=== PATIENT | male | born 1950 | race Asian ===

== ENCOUNTER → 2017-04-25 | Outpatient (CLI) | payer MEDICARE, OTHER ==
[~2017-04-25] VITALS: Ht 165.1 cm; Wt 88.9 kg
[~2017-04-25] MED LIST: ADV250 IH; ALBU8HFA IH; APIX5TAB PO; CETI-260 PO; FLUO15CR2 TP; HYDR25TA PO; LOSA50TA37 PO; METF500T4 PO; TRIAMCINOLONE 0.1% 15 GM OINTMENT TP ONE
[2017-04-25 13:53] VITALS: BP 152/94
[2017-04-25 15:54] LABS: GLUCOSE,POINT OF CARE 99 MG/DL (70-110)
== END | disposition home or self-care (01) ==
LOC: HBOWC 12:24
PROVIDERS: ATTEND Emergency Medicine
DX: E11.622 Type 2 diabetes mellitus with other skin ulcer (principal); L97.811 Non-pressure chronic ulcer of other part of right lower leg limited to breakdown of skin; I87.2 Venous insufficiency (chronic) (peripheral); I48.91 Unspecified atrial fibrillation; E78.5 Hyperlipidemia, unspecified; I10 Essential (primary) hypertension; J44.9 Chronic obstructive pulmonary disease, unspecified; Z87.891 Personal history of nicotine dependence
CPT/HCPCS: 82962; G0463

== ENCOUNTER → 2017-05-02 | Outpatient (CLI) | payer MEDICARE, OTHER ==
[~2017-05-02] MED LIST changes: +TRIAMCINOLONE 0.1% 15 GM CREAM TP ONE; -TRIAMCINOLONE 0.1% 15 GM OINTMENT TP ONE
[2017-05-02 14:20] VITALS: BP 110/62
== END | disposition home or self-care (01) ==
LOC: HBOWC 14:12
PROVIDERS: ATTEND Emergency Medicine
DX: E11.622 Type 2 diabetes mellitus with other skin ulcer (principal); L97.811 Non-pressure chronic ulcer of other part of right lower leg limited to breakdown of skin; I87.2 Venous insufficiency (chronic) (peripheral); J44.9 Chronic obstructive pulmonary disease, unspecified; I10 Essential (primary) hypertension; E78.5 Hyperlipidemia, unspecified; I48.91 Unspecified atrial fibrillation; Z87.891 Personal history of nicotine dependence

== ENCOUNTER → 2017-05-17 | Outpatient (CLI) | payer MEDICARE, OTHER ==
[~2017-05-17] MED LIST changes: -TRIAMCINOLONE 0.1% 15 GM CREAM TP ONE
[2017-05-17 14:21] VITALS: BP 115/72
== END | disposition home or self-care (01) ==
LOC: HBOWC 14:06
PROVIDERS: ATTEND Emergency Medicine
DX: I87.2 Venous insufficiency (chronic) (peripheral) (principal); E11.622 Type 2 diabetes mellitus with other skin ulcer; L97.811 Non-pressure chronic ulcer of other part of right lower leg limited to breakdown of skin; J44.9 Chronic obstructive pulmonary disease, unspecified; I10 Essential (primary) hypertension; E78.5 Hyperlipidemia, unspecified; I48.91 Unspecified atrial fibrillation; Z87.891 Personal history of nicotine dependence